=== PATIENT | female | born 1940 | race Caucasian/White ===

== ENCOUNTER 2020-07-10 10:00 | Outpatient (NON) | payer OTHER, SELFPAY ==
[2020-07-10 11:07] LABS: Alanine Aminotransferase 20 U/L (4-35); Albumin Level 3.9 g/dL (3.5-5.1); Alkaline Phosphatase 52 U/L (38-126); Anion Gap 8 mmol/L (8-16); Aspartate Amino Transferase 33 U/L (14-36); Bilirubin,Total 0.4 mg/dL (0.2-1.3); Blood Urea Nitrogen 25 mg/dL (7-17); Calcium 9.3 mg/dL (8.4-10.2); Carbon Dioxide 29 mmol/L (22-30); Chloride 106 mmol/L (98-107); Cholesterol 164 mg/dL (0-200); Estimated Glomerular Filt Rate > 60; Glucose 92 mg/dL (65-105); HDL Direct 45 mg/dL; LDL Cholesterol Direct 87 mg/dL; Potassium 4.2 mmol/L (3.4-5.0); Sodium 143 mmol/L (137-145); Thyroid Stimulating Hormone 0.027 uIU/mL (0.465-4.680); Triglycerides 147 mg/dL (<150)
== END 2020-07-10 10:01 ==
PROVIDERS: PCP Emergency Medicine; Visit Provider Emergency Medicine
DX: M16.0 Bilateral primary osteoarthritis of hip (principal); M17.11 Unilateral primary osteoarthritis, right knee; G30.1 Alzheimer's disease with late onset; F02.80 Dementia in other diseases classified elsewhere, unspecified severity, without behavioral disturbance, psychotic disturbance, mood disturbance, and anxiety; E78.5 Hyperlipidemia, unspecified; E03.9 Hypothyroidism, unspecified
CPT/HCPCS: 80053; 80061; 84443

== ENCOUNTER → 2021-04-22 15:01 | Outpatient (CLI) | payer OTHER, SELFPAY ==
--- NOTE | ~2021-04-22 | XR_ITS ---
EXAMINATION: XR knee LT 2V DATE: 04/22/2021 15:22 INDICATION: Left knee pain. TECHNIQUE: 2 views of left knee standing were obtained. COMPARISON: Left knee radiographs 09/01/2018 FINDINGS: There is a total left knee arthroplasty without patellar resurfacing in near-anatomic align ment. No fracture. No periprosthetic lucency to suggest loosening or infection. There is moderate ost eoarthritis of patellofemoral compartment. There is a moderate-sized knee joint effusion. IMPRESSION: 1. Total left knee arthroplasty in near-anatomic alignment. 2. Moderate osteoarthritis of patellofemoral compartment. 3. Moderate-sized knee joint effusion. Reviewed, dictated and finalized at location A.
== END ==
PROVIDERS: PCP Emergency Medicine; Visit Provider Nurse Practitioner Family
DX: M25.462 Effusion, left knee (principal); M17.12 Unilateral primary osteoarthritis, left knee
CPT/HCPCS: 73560

== ENCOUNTER 2022-03-24 11:59 | Observation (INO) | payer OTHER, SELFPAY ==
[2022-03-24] VITALS (7 sets, daily range): BP systolic 96–126; BP diastolic 44–81; PULSE 48–57; RESP 13–20; TEMP 36.6–36.8; O2SAT 94–99; BMI 37.3
--- NOTE | ~2022-03-24 | XR_ITS ---
XR knee LT 2V 03/25/2022 15:20 Indication: Left knee pain and swelling Procedure: 2 views left knee Comparison: 04/22/2021 Findings: There is a left total knee arthroplasty. Prosthesis well seated. Osteopenia. No acute fract ure or traumatic malalignment. No significant joint effusion. Impression: 1: No acute fracture. 2: Osteopenia. Reviewed, dictated and finalized at location A. Impression: 1: No acute fracture. 2: Osteopenia.
--- NOTE | ~2022-03-24 | XR_ITS ---
EXAMINATION: XR foot LT 2V DATE: 03/24/2022 12:52 INDICATION: Left heel pain. TECHNIQUE: 2 views of left foot were obtained. COMPARISON: None. FINDINGS: There is severe hallux valgus. There is diffuse osteopenia. No fracture. There is heterotop ic ossification distal to lateral malleolus, likely from old injury. There is moderate osteoarthritis of first metatarsophalangeal joint. There is an enthesophyte at plantar aspect of calcaneal tuberosi ty. IMPRESSION: 1. Severe hallux valgus. 2. Moderate osteoarthritis of first metatarsophalangeal joint. Reviewed, dictated and finalized at location A.
--- NOTE | ~2022-03-24 | US_ITS ---
EXAMINATION:US venous doppler LE BI INDICATION:Bilateral leg swelling TECHNIQUE: Multiple grayscale, color flow and Doppler images of the right and left lower extremity de ep venous systems were obtained and reviewed. COMPARISON:Ultrasound dated 03/01/2019 FINDINGS: There is deep venous thrombosis of the right popliteal and posterior tibial veins. The autumn yloanda of the right lower extremity and visualized aspects of the left lower extremity veins are paten t with normal flow, compressibility and augmentation. The left calf veins are not well visualized due to leg edema. IMPRESSION: 1: Deep venous thrombosis of the right popliteal and posterior tibial veins. Dr. Deric Howell discussed with Dr. Gala Bravo MD at 03/24/2022 14:24 CDT. Reviewed, dictated and finalized at location A.
--- NOTE | ~2022-03-24 | XR_ITS ---
EXAMINATION: XR chest 1V portable DATE: 03/24/2022 12:52 INDICATION: Lower limb edema. TECHNIQUE: A single frontal view of the chest was obtained. COMPARISON: Chest 2 views 01/18/2019 FINDINGS: The patient is rotated to her left. There is a diffuse interstitial pattern, consistent wit h mild pulmonary edema. No pleural effusion or pneumothorax. Cardiomegaly is noted. IMPRESSION: 1. Mild pulmonary edema. 2. Cardiomegaly. Reviewed, dictated and finalized at location A.
--- NOTE | 2022-03-24 12:24 | ECG_ITS ---
Measurements Intervals Snyder Rate: 51 P: 91 RI: 166 QRS: -65 QRSD: 154 T: 28 QT: 467 QTc: 432 Interpretive Statements SINUS BRADYCARDIA RIGHT BUNDLE BRANCH BLOCK LEFT ANTERIOR FASCICULAR BLOCK BASELINE ARTIFACT- I, II, III, AVR, AVL, AVF ABNORMAL ECG Electronically Signed On 03-24-2022 12:59:54 CDT by Hank Haynes D.O.
--- NOTE | 2022-03-24 12:39 | ED.GENADULT ---
HPI - General Adult General Chief complaint: Weakness Stated complaint: bilateral leg edema and pain, unable to walk now Time Seen by Provider: 03/24/22 12:02 Source: patient and RN notes reviewed Mode of arrival: EMS Limitations: no limitations History of Present Illness HPI narrative: This is an 81 year old female who presents from home for evaluation of left heel pain. PAtient states she has had difficulty getting around her house for months. She has been able to ambulate with a walker until today. She states she was unable to walk today because she is noticing left heel pain when she moves her foot and stands on her left heel. She denies any trauma. She has history of bilateral leg edema and that is chronic. She denies chest pain, sob, nausea, vomiting, dizziness. She states she can not walk due to her left heel pain. Related Data Home Medications Medication Instructions Recorded Confirmed acetaminophen 325 mg tablet See Rx Instructions .Route 08/24/19 03/24/22 .COMPLEX PRN pain Allergies Allergy/AdvReac Type Severity Reaction Status Date / Time No Known Allergies Allergy Verified 12/30/21 14:11 Review of Systems Review of Systems: All systems reviewed & are unremarkable except as noted in HPI and below Constitutional: Constitutional: Reports weakness Cardiovascular: Cardiovascular: Denies syncope, Denies rapid heart rate, Denies irregular heart rhythm, Reports leg edema and Denies dyspnea Respiratory: Respiratory: Denies chest congestion, Denies hemoptysis, Denies excessive phlegm production and Denies dyspnea Gastrointestinal: Gastrointestinal: Denies abdominal pain, Denies hematochezia, Denies diarrhea and Denies vomiting Genitourinary: Genitourinary: Denies hematuria and Denies dysuria Musculoskeletal: Musculoskeletal: Denies joint swelling, Denies loss of height and Denies muscle weakness Comments: left heel pain Integumentary/Breasts: Skin/Breast: Reports rash Neurologic: Denies syncope, Reports focal weakness (left arm weakness from previous stroke) and Denies weakness [facility] Past Medical History Medical History CVA (cerebral vascular accident) Dementia Depression HLD (hyperlipidemia) HTN (hypertension) Hypothyroidism (acquired) Surgical History Surgical History H/O left knee surgery History of back surgery Family History Family History Father Family history of cardiovascular disease, Onset Age: 56 Family history of malignant neoplasm, Onset Age: 56 Mother Family history of cardiovascular disease, Onset Age: 91 Social History Social History (Updated 03/24/22 @ 17:36 by Marifer Dinh PA-C) Smoking status: Former smoker Smoking end date: 03/13/17 Alcohol intake: former Substance use: never Living arrangements: with family Additional living arrangements comments: lives at home Gender identity (if verbalized by the patient): Female Sexual Orientation (if Verbalized by the Patient): Straight or Heterosexual Spiritual care concerns: No Exam Const: General: alert Nutritional Appearance: obese Orientation/consciousness: patient oriented x3 HENMT: Head: normal to inspection Eyes: Pupils: Equal, round and reactive pupils present EOM: EOMs intact bilaterally Resp: Effort & Inspection: normal respiratory effort Auscultation: clear to auscultation bilaterally Cardio: Rate: regular rate Rhythm: regular rhythm Heart sounds: no murmurs GI: GI Palp: Yes Soft to palpation, No Tenderness to palpation present (GI), No Guarding due to palpation present (GI) and No Rigid due to palpation Skin: Other: bilateral groin with rash , candidal there appears to be superficial ulcerations to left heel Neuro: General: patient oriented x3, moves all extremities an
[2022-03-24 13:11] LABS: Basophils Absolute Auto 0.1 K/mm3 (0.0-0.1); Basophils Percent Auto 1.1 % (0.2-1.2); Eosinophils Percent Auto 0.2 % (0-4.4); Hematocrit 39.8 % (37.0-47.0); Hemoglobin 12.6 g/dL (12.0-15.0); Immature Granulocyte Absolute 0.03 K/mm3 (0.00-0.031); Immature Granulocyte Percent A 0.4 % (0-0.5); Lymphocytes Absolute Auto 1.55 K/mm3 (0.9-3.2); Lymphocytes Percent Auto 18.6 % (18.3-44.2); Mean Corpuscular HGB Conc 31.7 g/dl (32-36); Mean Corpuscular Hemoglobin 29.3 pg (26-34); Mean Corpuscular Volume 92.6 fl (80-100); Mean Platelet Volume 10.8 fl (7.4-10.4); Monocytes Absolute Auto 0.9 K/mm3 (0.1-0.6); Monocytes Percent Auto 10.6 % (2.6-8.5); Neutrophils Absolute Auto 5.8 K/mm3 (1.3-6.7); Neutrophils Percent Auto 69.1 % (45.5-73.1); Platelet Count Result 216 k/mm3 (150-375); Red Cell Distribution Width 15.9 % (11.5-14.5); White Blood Count 8.3 K/mm3 (4.5-10.0)
[2022-03-24 13:13] LABS: Add Urine Microscopic? YES; Appearance Urine Cloudy (Clear); Bilirubin Urine Negative (Negative); Blood Urine 2+ (Negative); Color Urine Yellow (Yellow); Glucose Urine UA Negative (Negative); Ketones Urine Negative (Negative); Leukocyte Esterase Ur 3+ LEU/UL (Negative); Nitrate Urine Negative (Negative); Protein Urine 2+ mg/dL (Negative); Urobilinogen Urine 0.2 mg/dL (<2.0)
[2022-03-24 13:20] LABS: Alanine Aminotransferase 13 U/L (6-35); Albumin Level 3.9 g/dL (3.5-5.1); Alkaline Phosphatase 81 U/L (38-126); Anion Gap 4 mmol/L (8-16); Aspartate Amino Transferase 27 U/L (14-36); Bilirubin,Total 0.4 mg/dL (0.2-1.3); Blood Urea Nitrogen 31 mg/dL (7-17); Carbon Dioxide 32 mmol/L (22-30); Chloride 101 mmol/L (98-107); Estimated CRCL calculation 35 ml/min; Estimated Glomerular Filt Rate 39; Glucose 113 mg/dL (65-110); Potassium 3.8 mmol/L (3.4-5.0); Sodium 137 mmol/L (137-145)
[2022-03-24 13:26] LABS: Bacteria Urine 2+ /hpf; INR 1.1; Mucus Urine Rare /lpf; Prothrombin Time 13.6 Seconds (11.1-14.7); RBC Urine 21-50 /hpf (0-2); Squamous Epithelial Cell Urine Rare /hpf (Few); WBC Clumps Urine Present /HPF; WBC Urine >75 /hpf
[2022-03-24 13:27] LABS: Partial Thromboplastin Time 38.5 SECONDS (22.3-36.8)
[2022-03-24 13:28] LABS: NT Pro B Type Natriuretic Pept 284 pg/mL (5-100)
[2022-03-24] MEDS: ENOXAPARIN 100 MG/ML SYRINGE SUB-Q (15:29)
[2022-03-24 16:16] LABS: SARS-CoV-2 RNA PCR Negative
--- NOTE | 2022-03-24 17:21 | PM.IMHP ---
H&P: HPI History of Present Illness Date/Time: 03/24/22 17:21 Chief Complaint: Heel pain/ immobility Narrative: Patient is an 81-year-old female with past medical history of multiple strokes, dementia, depression, hyperlipidemia, hypertension, hypothyroidism, multiple blood clots, chronic pain, who presents to the emergency room for 2-3 day history of severe lower extremity swelling and pain and immobility. The patient reports that the pain in her left heel was so painful that she could not walk. She denies any urinary symptoms. She denies chest pain, shortness a breath, fever, chills, worsening confusion. Daughter and reported power of prosecuting attorney was present in the room during my exam, and helped to provide a portion of this history. The patient did consent to discussing her health care with her daughter and sister in the room. Daughter that patient had not moved from her couch in approximately 2-3 days, at which point the daughter called an ambulance to have her brought in to the hospital. Her daughter states patient and patient s are poor historians. States that patient has a history of multiple DVTs, with the most recent being in 2017 after her most recent stroke. She states she was on anticoagulation for some time, but it was discontinued for unknown reasons. She states the patient is incontinent, which contributes to frequent UTIs. The daughter used to be able to tell whenmother had UTIs due to confusion, however her dementia has worsened to the point where she can no longer tell when she has a UTI. Patient has been receiving home health care regularly, however her condition has progressed to the point where she does not feel it is safe for her to be at home, and is requesting placement at [facility] for long-term care. Patient has a history of at least 2 strokes in the past, and her primary care tells her that she continues to have multiple mini strokes. Patient denies history of heart attack, but she does have high blood pressure. She has depression, for which she takes sertraline, and chronic pain from a back surgery in the for which she receives pain medication through pump. Surgical history includes her back surgery in the late s or early 1999s, a abdominal hernia surgery in 2016 or 2017, and a left knee surgery in 2018 or 2019. She does not drink alcohol, she is a former smoker having quit 5 years prior, and she denies any street drug or illicit drug use. ER workup was significant for venous duplex showing right popliteal who posterior tibialis vein thrombosis, chest x-ray showing mild pulmonary edema and cardiomegaly, BNP of 284, UA showing RBCs, leuk esterase, wbc's, bacteria, and protein. Patient was given therapeutic Lovenox for the DVT and started on ceftriaxone for presumed UTI. She was further given a dose of IV Lasix in the ER, and we will continue her home diuretics once her medications are confirmed. Will transition her to apixaban in the morning for long-term anticoagulation. She may benefit from Hematology consultation. Patient is reportedly not ambulatory or stable on her feet and is prone to falls over short distances. Wound care will consult for her heel and buttock ulcers, and PT/OT will evaluate for placement in [facility]. Review of Systems Review of Systems: All systems reviewed & are unremarkable except as noted in HPI and below PMFSH Past Medical History Medical History CVA (cerebral vascular accident) Dementia Depression HLD (hyperlipidemia) HTN (hypertension) Hypothyroidism (acquired) Surgical History Surgical History H/O left knee surgery History of back surgery Family History Family History Father Family history of cardiovascular disease, Onset Age: 56 Family history of malignant neoplasm, Onset Age:
[2022-03-24] MEDS: FUROSEMIDE INJ 40 MG/4 ML VIAL IV PUSH (18:14)
[2022-03-24] MEDS: TOLNAFTATE 1% POWDER 45 GM BTL 1 APPLIC TOPICAL (20:33)
--- NOTE | 2022-03-24 22:17 | ADMGEN ---
This patient, Samantha Burgess, was admitted to Medical Room 343-01. Patient/family oriented to hospital policies and general routines including ID bracelet, bed and alarms, visiting hours, pain management, procedures, bathroom and other care routines, personal items, smoking policy, room service/diet, and visiting hours. Information on how to activate the Rapid Response Team has been discussed. Patient/Family are encouraged to report perceived risks to care and to ask questions if they do not understand what they are told or what they should do.
[2022-03-25] VITALS (9 sets, daily range): BP systolic 104–109; BP diastolic 32–61; PULSE 47–89; RESP 16–20; TEMP 36.2–36.6; O2SAT 95
[2022-03-25 00:06] LABS: Alanine Aminotransferase 12 U/L (6-35); Albumin Level 3.3 g/dL (3.5-5.1); Alkaline Phosphatase 72 U/L (38-126); Anion Gap 2 mmol/L (8-16); Aspartate Amino Transferase 25 U/L (14-36); Bilirubin,Total 0.4 mg/dL (0.2-1.3); Blood Urea Nitrogen 30 mg/dL (7-17); Calcium 8.6 mg/dL (8.4-10.2); Carbon Dioxide 31 mmol/L (22-30); Chloride 102 mmol/L (98-107); Estimated CRCL calculation 39 ml/min; Estimated Glomerular Filt Rate 43; Glucose 102 mg/dL (65-110); Potassium 4.4 mmol/L (3.4-5.0); Sodium 135 mmol/L (137-145)
[2022-03-25 00:10] LABS: Magnesium 2.2 mg/dL (1.6-2.3); Phosphorus 3.6 mg/dL (2.5-4.5)
[2022-03-25 04:50] LABS: Thyroid Stimulating Hormone Reflex > 100.000 uIU/mL (0.465-4.68)
[2022-03-25] MEDS: APIXABAN 2.5 MG TABLET PO ×2 (05:09→17:14)
[2022-03-25 05:17] LABS: Free T4 Free Thyroxine Reflex 0.55 ng/dL (0.78-2.19)
[2022-03-25 05:46] LABS: Basophils Absolute Auto 0.1 K/mm3 (0.0-0.1); Eosinophils Absolute Auto 0.1 K/mm3 (0-0.3); Eosinophils Percent Auto 0.9 % (0-4.4); Hematocrit 39.2 % (37.0-47.0); Hemoglobin 12.2 g/dL (12.0-15.0); Immature Granulocyte Absolute 0.02 K/mm3 (0.00-0.031); Immature Granulocyte Percent A 0.2 % (0-0.5); Lymphocytes Absolute Auto 1.92 K/mm3 (0.9-3.2); Lymphocytes Percent Auto 23.9 % (18.3-44.2); Mean Corpuscular HGB Conc 31.1 g/dl (32-36); Mean Corpuscular Volume 93.3 fl (80-100); Mean Platelet Volume 10.7 fl (7.4-10.4); Monocytes Absolute Auto 0.7 K/mm3 (0.1-0.6); Monocytes Percent Auto 8.7 % (2.6-8.5); Neutrophils Absolute Auto 5.2 K/mm3 (1.3-6.7); Neutrophils Percent Auto 65.3 % (45.5-73.1); Platelet Count Result 200 k/mm3 (150-375); Red Cell Distribution Width 15.8 % (11.5-14.5)
[2022-03-25 05:53] LABS: Alanine Aminotransferase 13 U/L (6-35); Albumin Level 3.5 g/dL (3.5-5.1); Alkaline Phosphatase 78 U/L (38-126); Anion Gap 4 mmol/L (8-16); Aspartate Amino Transferase 26 U/L (14-36); Bilirubin,Total 0.4 mg/dL (0.2-1.3); Blood Urea Nitrogen 28 mg/dL (7-17); Calcium 8.6 mg/dL (8.4-10.2); Carbon Dioxide 31 mmol/L (22-30); Chloride 103 mmol/L (98-107); Estimated CRCL calculation 39 ml/min; Estimated Glomerular Filt Rate 43; Glucose 91 mg/dL (65-110); Potassium 4.5 mmol/L (3.4-5.0); Sodium 138 mmol/L (137-145)
[2022-03-25] MEDS: TOLNAFTATE 1% POWDER 45 GM BTL 1 APPLIC TOPICAL ×2 (09:11→20:26)
--- NOTE | 2022-03-25 11:15 | P.PNIM_ITS ---
Progress Note: A&P Assessment and Plan (1) DVT (deep venous thrombosis): Code(s): I82.409 - Acute embolism and thrombosis of unspecified deep veins of unspecified lower extremity Status: Acute Assessment and Plan: * Venous duplex showed DVT of the right popliteal and PT veins. * Patient was started on Lovenox in the ER * Has been transitioned to Eliquis * Bleeding precaution education (2) Abnormal urinalysis: Code(s): R82.90 - Unspecified abnormal findings in urine Status: Acute Assessment and Plan: * UA shows likely UTI * Continue ceftriaxone * urine cultures pending * Since patient is incontinent it would cause the patient to be more prone to infection (3) Chronic pain: Code(s): G89.29 - Other chronic pain Status: Acute Assessment and Plan: * Reportedly has been treated for chronic pain since the late /early 1999s after back surgery. * On exam patient has a palpable subcutaneous pain pump in the right side of her abdomen. * We requested records from her primary care and pain management to determine what medication the pain pump is providing, and what rate. (4) Hypothyroidism (acquired): Code(s): E03.9 - Hypothyroidism, unspecified Status: Acute Assessment and Plan: * Awaiting confirmation patient's home medications * Current TSH is >100.000, and T4 is 0.55 * Currently on 100mcg of levothyroxine * Continue that for now * Will probably need to be titrated up for better control (5) Depression: Qualifiers: Active/Remission status: currently active Depression Type: major depressive disorder Major depression episode severity: mild Major depression recurrence: recurrent Qualified Code(s): F33.0 - Major depressive disorder, recurrent, mild Code(s): F32.9 - Major depressive disorder, single episode, unspecified Status: Acute Assessment and Plan: * Continue home medications (6) Dementia: Qualifiers: Alzheimer's disease onset: late-onset Dementia behavioral disturbance: without behavioral disturbance Dementia type: Alzheimer's disease Qualified Code(s): G30.1 - Alzheimer's disease with late onset; F02.80 - Dementia in other diseases classified elsewhere without behavioral disturbance Code(s): F03.90 - Unspecified dementia without behavioral disturbance Status: Acute Assessment and Plan: * Continue home medications * Patient's daughter reports that she is the medical power of mix technician for this patient, however there are no records in the chart shows this. Will need to obtain copy of this power of mix technician and or advance directive from the pat rose and her daughter. (7) Incontinence: Code(s): R32 - Unspecified urinary incontinence Status: Acute Assessment and Plan: * Plan as above * She might benefit from some bladder training (8) Left knee pain: Code(s): M25.562 - Pain in left knee Status: Acute Assessment and Plan: * Xray ordered * Could be from lack of use * Pain control Time Spent With Patient Time with patient: Greater than 35 minutes Subjective Date/time seen: 03/25/22 11:15 Interval history: 03/25/22 1115 Patient was sitting in the chair today. She was stating that she felt okay. She did say that her left knee was hurting her
--- NOTE | 2022-03-25 11:15 | PM.IMPN ---
Progress Note: A&P Assessment and Plan (1) DVT (deep venous thrombosis): Code(s): I82.409 - Acute embolism and thrombosis of unspecified deep veins of unspecified lower extremity Status: Acute Assessment and Plan: Venous duplex showed DVT of the right popliteal and PT veins. Patient was started on Lovenox in the ER Has been transitioned to Eliquis Bleeding precaution education (2) Abnormal urinalysis: Code(s): R82.90 - Unspecified abnormal findings in urine Status: Acute Assessment and Plan: UA shows likely UTI Continue ceftriaxone urine cultures pending Since patient is incontinent it would cause the patient to be more prone to infection (3) Chronic pain: Code(s): G89.29 - Other chronic pain Status: Acute Assessment and Plan: Reportedly has been treated for chronic pain since the late /early after back surgery. On exam patient has a palpable subcutaneous pain pump in the right side of her abdomen. We requested records from her primary care and pain management to determine what medication the pain pump is providing, and what rate. (4) Hypothyroidism (acquired): Code(s): E03.9 - Hypothyroidism, unspecified Status: Acute Assessment and Plan: Awaiting confirmation patient's home medications Current TSH is >100.000, and T4 is 0.55 Currently on 100mcg of levothyroxine Continue that for now Will probably need to be titrated up for better control (5) Depression: Qualifiers: Active/Remission status: currently active Depression Type: major depressive disorder Major depression episode severity: mild Major depression recurrence: recurrent Qualified Code(s): F33.0 - Major depressive disorder, recurrent, mild Code(s): F32.9 - Major depressive disorder, single episode, unspecified Status: Acute Assessment and Plan: Continue home medications (6) Dementia: Qualifiers: Alzheimer's disease onset: late-onset Dementia behavioral disturbance: without behavioral disturbance Dementia type: Alzheimer's disease Qualified Code(s): G30.1 - Alzheimer's disease with late onset; F02.80 - Dementia in other diseases classified elsewhere without behavioral disturbance Code(s): F03.90 - Unspecified dementia without behavioral disturbance Status: Acute Assessment and Plan: Continue home medications Patient's daughter reports that she is the medical power of estate attorney for this patient, however there are no records in the chart shows this. Will need to obtain copy of this power of estate attorney and or advance directive from the patient and her daughter. (7) Incontinence: Code(s): R32 - Unspecified urinary incontinence Status: Acute Assessment and Plan: Plan as above She might benefit from some bladder training (8) Left knee pain: Code(s): M25.562 - Pain in left knee Status: Acute Assessment and Plan: Xray ordered Could be from lack of use Pain control Time Spent With Patient Time with patient: Greater than 35 minutes Subjective Date/time seen: 03/25/22 11:15 Interval history: 03/25/22 1115 Patient was sitting in the chair today. She was stating that she felt okay. She did say that her left knee was hurting her and which was causing her not to be able to get up as well. She denies any chest pain, shortness of breath, nausea, vomiting, diarrhea, constipation, weakness or fatigue. She did state that she is urinating okay. Her appetite seems okay at this time as well. Patient did state that it was really hard getting out of bed however she did to it. They had to use the [facility]. 03/24/22? 17:21 Patient is an 81-year-old female with past medical history of multiple strokes, dementia, depression, hyperlipidemia, hypertension, hypothyroidism, multiple blo
[2022-03-25 15:59] LABS: Hematocrit 36.8 % (37.0-47.0); Hemoglobin 11.6 g/dL (12.0-15.0)
[2022-03-26] VITALS (8 sets, daily range): BP systolic 130–139; BP diastolic 42–46; PULSE 47–85; RESP 16–20; TEMP 36.4–36.6; O2SAT 96–99
[2022-03-26] MEDS: APIXABAN 2.5 MG TABLET PO (05:25)
[2022-03-26 05:53] LABS: Basophils Absolute Auto 0.1 K/mm3 (0.0-0.1); Eosinophils Absolute Auto 0.2 K/mm3 (0-0.3); Hematocrit 39.5 % (37.0-47.0); Immature Granulocyte Absolute 0.03 K/mm3 (0.00-0.031); Immature Granulocyte Percent A 0.5 % (0-0.5); Lymphocytes Absolute Auto 1.99 K/mm3 (0.9-3.2); Lymphocytes Percent Auto 33.1 % (18.3-44.2); Mean Corpuscular HGB Conc 30.4 g/dl (32-36); Mean Corpuscular Hemoglobin 29.2 pg (26-34); Mean Corpuscular Volume 96.1 fl (80-100); Mean Platelet Volume 11.2 fl (7.4-10.4); Monocytes Absolute Auto 0.6 K/mm3 (0.1-0.6); Monocytes Percent Auto 10.6 % (2.6-8.5); Neutrophils Absolute Auto 3.1 K/mm3 (1.3-6.7); Neutrophils Percent Auto 51.8 % (45.5-73.1); Platelet Count Result 152 k/mm3 (150-375); Red Blood Count 4.11 M/mm3 (4.2-5.4); Red Cell Distribution Width 15.9 % (11.5-14.5)
[2022-03-26 06:06] LABS: Alanine Aminotransferase 11 U/L (6-35); Albumin Level 3.1 g/dL (3.5-5.1); Alkaline Phosphatase 64 U/L (38-126); Anion Gap 6 mmol/L (8-16); Aspartate Amino Transferase 30 U/L (14-36); Bilirubin,Total 0.3 mg/dL (0.2-1.3); Blood Urea Nitrogen 29 mg/dL (7-17); Calcium 7.9 mg/dL (8.4-10.2); Carbon Dioxide 24 mmol/L (22-30); Chloride 103 mmol/L (98-107); Estimated CRCL calculation 43 ml/min; Estimated Glomerular Filt Rate 48; Glucose 78 mg/dL (65-110); Magnesium 2.4 mg/dL (1.6-2.3); Potassium 4.1 mmol/L (3.4-5.0); Sodium 133 mmol/L (137-145)
[2022-03-26] MEDS: TOLNAFTATE 1% POWDER 45 GM BTL 1 APPLIC TOPICAL (07:51)
--- NOTE | 2022-03-26 11:30 | PM.DS ---
DS: Admitting Diagnosis Discharge Date 03/26/22 11:30 Admitting Diagnosis DVT/UTI DS: Discharge Diagnosis Discharge Diagnosis (1) DVT (deep venous thrombosis): Code(s): I82.409 - Acute embolism and thrombosis of unspecified deep veins of unspecified lower extremity Status: Acute Assessment and Plan: Venous duplex showed DVT of the right popliteal and PT veins. Patient was started on Lovenox in the ER Has been transitioned to Eliquis Bleeding precaution education (2) Chronic pain: Code(s): G89.29 - Other chronic pain Status: Acute Assessment and Plan: Reportedly has been treated for chronic pain since the late /early after back surgery. On exam patient has a palpable subcutaneous pain pump in the right side of her abdomen. We requested records from her primary care and pain management to determine what medication the pain pump is providing, and what rate. (3) Hypothyroidism (acquired): Code(s): E03.9 - Hypothyroidism, unspecified Status: Acute Assessment and Plan: Awaiting confirmation patient's home medications Current TSH is >100.000, and T4 is 0.55 Currently on 100mcg of levothyroxine Continue that for now Will probably need to be titrated up for better control (4) Depression: Qualifiers: Active/Remission status: currently active Depression Type: major depressive disorder Major depression episode severity: mild Major depression recurrence: recurrent Qualified Code(s): F33.0 - Major depressive disorder, recurrent, mild Code(s): F32.9 - Major depressive disorder, single episode, unspecified Status: Acute Assessment and Plan: Continue home medications (5) Dementia: Qualifiers: Alzheimer's disease onset: late-onset Dementia behavioral disturbance: without behavioral disturbance Dementia type: Alzheimer's disease Qualified Code(s): G30.1 - Alzheimer's disease with late onset; F02.80 - Dementia in other diseases classified elsewhere without behavioral disturbance Code(s): F03.90 - Unspecified dementia without behavioral disturbance Status: Acute Assessment and Plan: Continue home medications Patient's daughter reports that she is the medical power of managing attorney for this patient, however there are no records in the chart shows this. Will need to obtain copy of this power of managing attorney and or advance directive from the patient and her daughter. (6) Incontinence: Code(s): R32 - Unspecified urinary incontinence Status: Acute Assessment and Plan: Plan as above She might benefit from some bladder training (7) Left knee pain: Code(s): M25.562 - Pain in left knee Status: Acute Assessment and Plan: Xray ordered Could be from lack of use Pain control (8) Acute UTI: Code(s): N39.0 - Urinary tract infection, site not specified Status: Acute Assessment and Plan: UA shows likely UTI Antibiotics changed to Augmentin urine culture E. Coli Since patient is incontinent it would cause the patient to be more prone to infection Educated about good delmy care. DS: Summary Hospital Course Hospital Course: Patient is an 81 year old female with a past medical history of CVA, Dementia, HLD, HTN, and hypothyroidism who presented to the ed with complaints of severe weakness, and immobility. According to her daughter, the patient has been very lethargic and not been moving around much lately. Upon arrival it was noted that she had a DVT in her posterior tibialis. Chest xray showed pulmonary edema. UA did appear to be infectious and urine culture did come back growing E. Coli. Patient was initially started on full dose lovenox, and transitioned to Eliquis. She stated that she feels ok today and that she feels back to her baseline. She did also state that s
--- NOTE | 2022-03-26 11:30 | P.DS_ITS ---
DS: Admitting Diagnosis Discharge Date 03/26/22 11:30 Admitting Diagnosis DVT/UTI DS: Discharge Diagnosis Discharge Diagnosis (1) DVT (deep venous thrombosis): Code(s): I82.409 - Acute embolism and thrombosis of unspecified deep veins of unspecified lower extremity Status: Acute Assessment and Plan: * Venous duplex showed DVT of the right popliteal and PT veins. * Patient was started on Lovenox in the ER * Has been transitioned to Eliquis * Bleeding precaution education (2) Chronic pain: Code(s): G89.29 - Other chronic pain Status: Acute Assessment and Plan: * Reportedly has been treated for chronic pain since the late /early 1999s after back surgery. * On exam patient has a palpable subcutaneous pain pump in the right side of her abdomen. * We requested records from her primary care and pain management to determine what medication the pain pump is providing, and what rate. (3) Hypothyroidism (acquired): Code(s): E03.9 - Hypothyroidism, unspecified Status: Acute Assessment and Plan: * Awaiting confirmation patient's home medications * Current TSH is >100.000, and T4 is 0.55 * Currently on 100mcg of levothyroxine * Continue that for now * Will probably need to be titrated up for better control (4) Depression: Qualifiers: Active/Remission status: currently active Depression Type: major depressive disorder Major depression episode severity: mild Major depression recurrence: recurrent Qualified Code(s): F33.0 - Major depressive disorder, recurrent, mild Code(s): F32.9 - Major depressive disorder, single episode, unspecified Status: Acute Assessment and Plan: * Continue home medications (5) Dementia: Qualifiers: Alzheimer's disease onset: late-onset Dementia behavioral disturbance: without behavioral disturbance Dementia type: Alzheimer's disease Qualified Code(s): G30.1 - Alzheimer's disease with late onset; F02.80 - Dementia in other diseases classified elsewhere without behavioral disturbance Code(s): F03.90 - Unspecified dementia without behavioral disturbance Status: Acute Assessment and Plan: * Continue home medications * Patient's daughter reports that she is the medical power of immigration attorney for this patient, however there are no records in the chart shows this. Will need to obtain copy of this power of immigration attorney and or advance directive from the patient and her daughter. (6) Incontinence: Code(s): R32 - Unspecified urinary incontinence Status: Acute Assessment and Plan: * Plan as above * She might benefit from some bladder training (7) Left knee pain: Code(s): M25.562 - Pain in left knee Status: Acute Assessment and Plan: * Xray ordered * Could be from lack of use * Pain control (8) Acute UTI: Code(s): N39.0 - Urinary tract infection, site not specified Status: Acute Assessment and Plan: * UA shows likely UTI * Antibiotics changed to Augmentin * urine culture E. Coli * Since patient is incontinent it would cause the patient to be more prone to infection * Educated about good delmy care. DS: Summary Hospital Course Hospital Course: Patient is an 81 year old female with a past medical history of CVA, Dementia, HLD, HTN, and hypothyroi
[2022-03-26] MEDS: AMOXICILLIN 500 MG CAPSULE PO ×2 (11:35→14:42)
--- NOTE | 2022-03-26 11:44 | PCPTNOTE ---
Attempted to see patient for PT, however patient was eating lunch at this time.
[2022-03-26] MEDS: HYDROcodone/acetaminophen (*CRX) 5-325 MG TABLET 1 TAB PO (14:42)
[2022-03-26 15:40] LABS: EDCOVIDSCREEN Negative (Negative)
--- NOTE | 2022-03-26 15:43 | PCCCNOTE ---
On 03/26/22, the student, Roberta Cruz, provided care and completed [facility] documentation on this patient. I have reviewed the student's documentation and agree with the findings.
== END 2022-03-26 18:20 ==
LOC: ANHED 14:31 → ANH3MED 18:44
PROVIDERS: Internal Medicine; Student in an Organized Health Care Education/Training Program; Admitting Provider Internal Medicine; Emergency Provider General Practice; PCP Emergency Medicine; Visit Provider Nurse Practitioner
DX: I82.441 Acute embolism and thrombosis of right tibial vein (principal); G89.29 Other chronic pain; E03.9 Hypothyroidism, unspecified; F32.9 Major depressive disorder, single episode, unspecified; R32 Unspecified urinary incontinence; M25.562 Pain in left knee; R82.90 Unspecified abnormal findings in urine; G30.1 Alzheimer's disease with late onset; L89.90 Pressure ulcer of unspecified site, unspecified stage; F02.80 Dementia in other diseases classified elsewhere, unspecified severity, without behavioral disturbance, psychotic disturbance, mood disturbance, and anxiety; N39.0 Urinary tract infection, site not specified; R53.1 Weakness; M79.672 Pain in left foot; J81.1 Chronic pulmonary edema; Z86.73 Personal history of transient ischemic attack (TIA), and cerebral infarction without residual deficits; E78.5 Hyperlipidemia, unspecified; Z87.891 Personal history of nicotine dependence; I11.9 Hypertensive heart disease without heart failure; J81.0 Acute pulmonary edema; M20.12 Hallux valgus (acquired), left foot; R00.1 Bradycardia, unspecified; I45.2 Bifascicular block; M85.862 Other specified disorders of bone density and structure, left lower leg; B96.20 Unspecified Escherichia coli [E. coli] as the cause of diseases classified elsewhere; Z20.822 Contact with and (suspected) exposure to COVID-19; Z79.01 Long term (current) use of anticoagulants; Z79.02 Long term (current) use of antithrombotics/antiplatelets; Z79.899 Other long term (current) drug therapy
CPT/HCPCS: 36415; 51701; 71045; 73560; 73620; 80053; 81001; 83735; 83880; 84100; 84439; 84443; 85014; 85018; 85025; 85610; 85730; 87077; 87086; 87088; 87186; 87426; 93005; 93970; 96372; 96374; 96375; 97161; 97166; 97535; 99285; A9270; C9803; G0378; J0696; J1650; J1940; U0003; U0005

== ENCOUNTER 2022-10-11 10:58 | Observation (INO) | payer OTHER, SELFPAY ==
--- NOTE | ~2022-10-11 | CT_ITS ---
EXAMINATION: CT abdomen pelvis wo con DATE: 10/11/2022 12:36 INDICATION: Nonhealing localized abdominal pain TECHNIQUE: Computed tomography (CT) of the abdomen and pelvis was performed without intravenous contr ast. The dose-length product was 545.74 mGy-cm. Automated exposure control and iterative reconstructi on technique were employed. COMPARISON: CT dated 12/29/2016. FINDINGS: Cardiomegaly. Dependent atelectasis. Gallbladder is distended with gallstones. Large stagho rn calculus in the right kidney. There are multiple left renal stones. There is a complex irregularly marginated hypodense mass of the left kidney at the upper pole measuring 7.7 x 5.8 x 7 cm, new since prior examination, concerning for renal cell carcinoma. There is a ventral hernia containing fat kristine r the level of the umbilicus. No evidence for bowel obstruction. There is a pessary device in the pel vis. Severe lumbar spondylosis. 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 There is a spinal cath eter with the superior tip overlying the lower thoracic spine. IMPRESSION: 1. New complex irregular shaped mass of the upper pole of the left kidney, concerning for renal cell carcinoma. Correlation with CT or MRI without and with contrast recommended. 2: Dilated gallbladder with gallstones. 3: Bilateral nephrolithiasis with staghorn calculus in the right kidney. 4: Periumbilical ventral abdominal wall hernia containing fat and nonobstructed small bowel. Reviewed, dictated and finalized at location A. [facility] [employer] IMPRESSION: 1. New complex irregular shaped mass of the upper pole of the left kidney, conc erning for renal cell carcinoma. Correlation with CT or MRI without and with co ntrast recommended. 2: Dilated gallbladder with gallstones. 3: Bilateral nephrolithiasis with staghorn calculus in the right kidney. 4: Periumbilical ventral abdominal wall hernia containing fat and nonobstructe d small bowel.
[2022-10-11 10:58] VITALS: BP 101/73; PULSE 77; RESP 22; O2SAT 95
[2022-10-11] MEDS: SODIUM CHLORIDE 0.9% IV 1,000 ML 999 ML IV CONT ×2 (11:33→13:03)
[2022-10-11 11:56] LABS: Basophils Absolute Auto 0.1 K/mm3 (0.0-0.1); Basophils Percent Auto 0.4 % (0.2-1.2); Hematocrit 33.3 % (37.0-47.0); Hemoglobin 10.5 g/dL (12.0-15.0); Immature Granulocyte Absolute 0.38 K/mm3 (0.00-0.031); Immature Granulocyte Percent A 1.4 % (0-0.5); Lymphocytes Absolute Auto 1.68 K/mm3 (0.9-3.2); Lymphocytes Percent Auto 6.3 % (18.3-44.2); Mean Corpuscular HGB Conc 31.5 g/dl (32-36); Mean Corpuscular Hemoglobin 26.6 pg (26-34); Mean Corpuscular Volume 84.5 fl (80-100); Mean Platelet Volume 10.2 fl (7.4-10.4); Monocytes Absolute Auto 1.8 K/mm3 (0.1-0.6); Monocytes Percent Auto 6.9 % (2.6-8.5); Neutrophils Absolute Auto 22.6 K/mm3 (1.3-6.7); Platelet Count Result 405 k/mm3 (150-375); Red Blood Count 3.94 M/mm3 (4.2-5.4); Red Cell Distribution Width 18.8 % (11.5-14.5); White Blood Count 26.6 K/mm3 (4.5-10.0)
[2022-10-11 12:07] LABS: Lactic Acid Reflex 2.1 mmol/L (0.7-2.0)
[2022-10-11 12:12] LABS: RBC Urine >75 /hpf (0-2); WBC Clumps Urine Present /HPF; WBC Urine >75 /hpf
[2022-10-11 12:13] LABS: Alanine Aminotransferase 23 U/L (6-35); Albumin Level 3.4 g/dL (3.5-5.1); Alkaline Phosphatase 119 U/L (38-126); Anion Gap 15 mmol/L (8-16); Aspartate Amino Transferase 43 U/L (14-36); Bilirubin,Total 0.7 mg/dL (0.2-1.3); Calcium 8.8 mg/dL (8.4-10.2); Carbon Dioxide 18 mmol/L (22-30); Chloride 99 mmol/L (98-107); Estimated CRCL calculation 8 ml/min; Estimated Glomerular Filt Rate 8; Glucose 111 mg/dL (65-110); Lipase 222 U/L (23-300); Potassium 3.4 mmol/L (3.4-5.0); Sodium 132 mmol/L (137-145)
[2022-10-11 12:15] LABS: Add Urine Microscopic? YES; Appearance Urine Turbid (Clear); Color Urine Other (Yellow)
[2022-10-11 12:16] LABS: INR 2.1; Prothrombin Time 22.4 Seconds (11.1-14.7)
[2022-10-11 12:17] LABS: Partial Thromboplastin Time 43.6 SECONDS (22.3-36.8)
[2022-10-11 12:54] VITALS: BP 81/46; PULSE 83; RESP 15; O2SAT 92
[2022-10-11 12:54] LABS: Blood Urea Nitrogen 135 mg/dL (7-17)
[2022-10-11 13:07] VITALS: BP 98/71; PULSE 79; RESP 11; O2SAT 97
[2022-10-11 13:47] VITALS: BP 103/90; PULSE 84; RESP 15; O2SAT 97
--- NOTE | 2022-10-11 14:03 | ED.GENADULT ---
HPI - General Adult General Chief complaint: Abdominal Pain Stated complaint: ABD Pain, Abnormal Labs Time Seen by Provider: 10/11/22 11:06 History of Present Illness HPI narrative: Patient is an 82-year-old female who presents to the ER with abdominal pain and elevated BUN. Patient is oriented x1 cannot provide history. She has no complaints. She does have lower abdominal tenderness and there is concern by the [place] [facility] to have a bleeding from her vagina or rectum. Related Data Home Medications Medication Instructions Recorded Confirmed acetaminophen 325 mg tablet See Rx Instructions .Route 08/24/19 03/24/22 .COMPLEX PRN pain Allergies Allergy/AdvReac Type Severity Reaction Status Date / Time No Known Allergies Allergy Verified 12/30/21 14:11 Review of Systems Review of Systems: ROS unobtainable: Yes unobtainable due to mental status PMFSH Past Medical History Medical History CVA (cerebral vascular accident) Dementia Depression HLD (hyperlipidemia) HTN (hypertension) Hypothyroidism (acquired) Surgical History Surgical History H/O left knee surgery History of back surgery Family History Family History Father Family history of cardiovascular disease, Onset Age: 56 Family history of malignant neoplasm, Onset Age: 56 Mother Family history of cardiovascular disease, Onset Age: 91 Social History Social History (Updated 03/24/22 @ 17:36 by Marifer Dinh, NIMA) Smoking status: Former smoker Tobacco type: cigarettes Smoking end date: 03/13/17 Alcohol intake: never Substance use: never Substance use type: does not use Living arrangements: with family Additional living arrangements comments: lives at home Gender identity (if verbalized by the patient): Female Sexual Orientation (if Verbalized by the Patient): Straight or Heterosexual Spiritual care concerns: Yes (Quaker) Exam Narrative: GENERAL: Well-appearing, well-nourished, and in no acute distress. HEAD: Normocephalic, atraumatic. EYES: PERRL and EOMI. ENT: Mucous membranes moist. CHEST: Clear to auscultation. No respiratory distress. HEART: Tachycardic and regular. Normal peripheral pulses. ABDOMEN: Soft, tender palpation bilateral lower quadrants, nondistended. No black soft stool in rectum that is guaiac positive. EXTREMITIES: Normal range of motion. No edema. SKIN: Warm, dry, no rash. Sacral decubitus ulcer with fetid odor and grayish discharge. No surrounding cellulitis. NEURO: Alert and oriented x1. Course Course Emergency Course: I had a long conversation is patient's part appeals rn who is also her daughter. We have discussed central line and IV vasopressors and the seriousness of the patient's illness. They do not want any heroic or aggressive measures. The preferred patient be treated with IV fluids and IV antibiotics. They recognized that she may potentially related to her current illness. Vital Signs Vital signs: Vital Signs Pulse Rate 77 10/11/22 10:58 Respiratory Rate 22 H 10/11/22 10:58 Blood Pressure 101/73 10/11/22 10:58 Pulse Oximetry 95 10/11/22 10:58 Oxygen Delivery Room Air 10/11/22 10:58 Pulse Rate 84 10/11/22 13:47 Respiratory Rate 15 10/11/22 13:47 Blood Pressure 103/90 10/11/22 13:47 Pulse Oximetry 97 10/11/22 13:47 Oxygen Delivery Room Air 10/11/22 10:58 Medical Decision Making Vital Signs Vital Signs: Vital Signs Pulse Rate 77 10/11/22 10:58 Respiratory Rate 22 H 10/11/22 10:58 Blood Pressure 101/73 10/11/22 10:58 Pulse Oximetry 95 10/11/22 10:58 Oxygen Delivery Room Air 10/11/22 10:58 Pulse Rate 84 10/11/22 13:47 Respiratory Rate 15 10/11/22 13:47 Blood Pressure 103/90 10/11/22 13:47 Pulse Oximetry
--- NOTE | 2022-10-11 14:08 | PM.IMHP ---
H&P: HPI History of Present Illness Date/Time: 10/11/22 14:10 Chief Complaint: Abnormal labs. Narrative: This is an 82-year-old female with history of strokes, dementia, depression, hyperlipidemia, hypertension, hypothyroidism, multiple blood clots, chronic pain, who presented to the emergency department via EMS from [facility] for evaluation of abnormal labs. She is not able to provide an accurate history and thus all of the following history is obtained from her daughter and LEONARDO Rodríguezfer via phone. The patient has been in the residential since March 2022 and she is bed/wheelchair-bound, transferring with a left. According to Jeanette the patient has gone downhill in the last 2 months. It has gotten to the point where the patient does not want to eat, not due to nausea or vomiting, simply due to a lack of appetite. Jeanette also feels dementia may be playing a role in that as well. She has had issues with recurrent urinary tract infections and more recently she has developed 2 pressure ulcers. Over the past week she has apparently been much worse which prompted labs to be drawn which showed evidence of an acute kidney injury and she was sent in today for evaluation. Blood pressure was 81/46 on arrival to the emergency department and it has responded somewhat to IV fluids. Labs were significant for a WBC of 26.6, BUN 135, creatinine 5.10, sodium 132, lactic acid 2.1. According to the nurse her urine was purulent on insertion of Tapia catheter which yielded perhaps 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 Physical exam revealed malodorous discharge from a sacral decubitus ulcer, stool was dark and guaiac positive. All of this was discussed with the patient's daughter who reiterates that she is a do not resuscitate. Due to the patient's decline recently she does not want aggressive treatment but is okay with IV fluids and antibiotics. Hospice referral has been made for tomorrow. At the time my evaluation the patient is alert and is quite pleasant. She is confused but is aware that she is in the hospital. Her only complaint is that of pain in her tailbone. Review of Systems Review of Systems: Twelve systems were reviewed but given her dementia she is on accurate historian. She had no complaints aside from that as listed above. [facility] Past Medical History Medical History (Updated 10/11/22 @ 22:52 by Harper Og PA-C) Cerebrovascular accident Deep venous thrombosis Dementia Depression Hyperlipidemia Hypertension Hypothyroidism Surgical History Surgical History (Updated 10/11/22 @ 22:46 by Harper Og PA-C) History of back surgery History of cataract extraction History of left knee surgery Family History Family History Father Family history of cardiovascular disease, Onset Age: 56 Family history of malignant neoplasm, Onset Age: 56 Mother Family history of cardiovascular disease, Onset Age: 91 Social History Social History (Updated 10/11/22 @ 22:46 by Harper Og PA-C) Social History: Healthcare power of video game repair technician: Jeanette Burgess, daughter. Code status: Do not resuscitate per Smoking status: Former smoker Tobacco type: cigarettes Smoking end date: 03/13/17 Alcohol intake: never Substance use: never Substance use type: does not use Additional living arrangements comments: [facility]. Spiritual care concerns: Yes (Faith) Meds Home Medications and Allergies Home Medications Medication Instructions Recorded Confirmed Type acetaminophen 325 mg tablet See Rx Instructions .Route 08/24/19 10/11/22 History .COMPLEX PRN pain clopidogrel 75 mg tablet See Rx Inst
[2022-10-11 14:55] LABS: Reflex Lactic Acid Yes or No Add Lactic
[2022-10-11 15:36] LABS: Lactic Acid 1.1 mmol/L (0.7-2.0)
[2022-10-11 16:15] VITALS: BP 100/42; PULSE 80; RESP 13; O2SAT 93
[2022-10-11] MEDS: SODIUM CHLORIDE 0.9% IV 1,000 ML 125 ML IV CONT ×2 (17:07→21:15)
[2022-10-11] MEDS: PANTOPRAZOLE SODIUM IV 40 MG VIAL IV PUSH ×2 (17:07→21:07)
[2022-10-11 22:00] VITALS: BP 145/117; PULSE 155; RESP 16; TEMP 36.1
[2022-10-11 23:20] LABS: Hematocrit 30.6 % (37.0-47.0); Hemoglobin 9.5 g/dL (12.0-15.0); Mean Corpuscular Hemoglobin 26.2 pg (26-34); Mean Corpuscular Volume 84.3 fl (80-100); Mean Platelet Volume 10.3 fl (7.4-10.4); Platelet Count Result 350 k/mm3 (150-375); Red Blood Count 3.63 M/mm3 (4.2-5.4); Red Cell Distribution Width 18.6 % (11.5-14.5); White Blood Count 22.5 K/mm3 (4.5-10.0)
[2022-10-12 00:02] LABS: Anion Gap 14 mmol/L (8-16); Calcium 7.6 mg/dL (8.4-10.2); Carbon Dioxide 15 mmol/L (22-30); Chloride 109 mmol/L (98-107); Creatine Kinase 142 U/L (30-135); Estimated CRCL calculation 9 ml/min; Estimated Glomerular Filt Rate 10; Glucose 96 mg/dL (65-110); Magnesium 2.5 mg/dL (1.6-2.3); Potassium 3.4 mmol/L (3.4-5.0); Sodium 138 mmol/L (137-145)
[2022-10-12 00:11] LABS: Blood Urea Nitrogen 127 mg/dL (7-17)
[2022-10-12] MEDS: LACTATED RINGERS 1,000 ML 100 ML IV CONT ×2 (02:16→10:32)
[2022-10-12] MEDS: LEVOTHYROXINE SODIUM 100 MCG TABLET BY MOUTH (05:45)
[2022-10-12 06:00] VITALS: BP 131/86; PULSE 98; RESP 20; TEMP 36.4; O2SAT 100
[2022-10-12] MEDS: PANTOPRAZOLE SODIUM IV 40 MG VIAL IV PUSH (10:31)
[2022-10-12] MEDS: LIDOCAINE 5% PATCH 1 PATCH TRANSDERM (10:31)
[2022-10-12] MEDS: SERTRALINE HCL 50 MG TABLET 100 MG BY MOUTH (10:31)
[2022-10-12] MEDS: TOLNAFTATE 1% POWDER 45 GM BTL 1 APPLIC TOPICAL (10:32)
[2022-10-12] MEDS: ONDANSETRON INJ 4 MG/2 ML VIAL IV PUSH (11:30)
[2022-10-12] MEDS: MORPHINE SULFATE (*CRX) 4 MG/ML INJ IV PUSH ×2 (11:30→15:34)
--- NOTE | 2022-10-12 12:01 | PC.NURSE ---
Provider notified of blood culture results.
--- NOTE | 2022-10-12 12:32 | PM.IMPN ---
Progress Note: A&P Assessment and Plan (1) Sepsis: Code(s): A41.9 - Sepsis, unspecified organism Status: Acute (2) Acute kidney injury: Code(s): N17.9 - Acute kidney failure, unspecified Status: Acute (3) Urinary tract infection: Code(s): N39.0 - Urinary tract infection, site not specified Status: Acute (4) Heme positive stool: Code(s): R19.5 - Other fecal abnormalities Status: Acute (5) Left kidney mass: Code(s): N28.89 - Other specified disorders of kidney and ureter Status: Acute (6) Bilateral nephrolithiasis: Code(s): N20.0 - Calculus of kidney Status: Acute (7) Dementia: Qualifiers: Alzheimer's disease onset: late-onset Dementia behavioral disturbance: without behavioral disturbance Dementia type: Alzheimer's disease Qualified Code(s): G30.1 - Alzheimer's disease with late onset; F02.80 - Dementia in other diseases classified elsewhere without behavioral disturbance Code(s): F03.90 - Unspecified dementia, unspecified severity, without behavioral disturbance, psychotic disturbance, mood disturbance, and anxiety Status: Acute (8) Decubitus ulcer of sacral area: Code(s): L89.159 - Pressure ulcer of sacral region, unspecified stage Status: Acute Plan The patient presented to the ED from [facility] for evaluation of abnormal labs. Daughter provides the history given the patient's dementia. Labs, imaging, EKG, and reports were personally reviewed. The patient has sepsis as evidenced by hypotension (improved somewhat with fluids), lactic acidosis, and acute kidney injury. Source of infection appears to be urine and possibly decubitus ulcer. She has been started on Zosyn pending blood, wound, and urine cultures. At the time of this dictation she has received 3 L of IV fluid with minimal urine output. CT also showed evidence of a left renal mass which is presumably malignant and bilateral nephrolithiasis with a staghorn on the right. Additionally her stool was dark and Hemoccult positive. I had a lengthy conversation with the patient's daughter Jeanette via phone and given the above in addition to the patient's recent decline she has opted not to pursue aggressive treatment. We will continue with IV fluids and antibiotics for now. Hospice referral has been placed. Her home medications will be reviewed and resumed as appropriate. 10/12/2022 interval history: Patient with chronic multiple medical problems, patient health is worsening, her grand daughter is present in the room and has decided to place under hospice care, will consult ambulatory care for hospice consult. will continue to monitor. Subjective Date/time seen: 10/12/22 12:32 HPI-Narrative: This is an 82-year-old female with history of strokes, dementia, depression, hyperlipidemia, hypertension, hypothyroidism, multiple blood clots, chronic pain, who presented to the emergency department via EMS from [facility] for evaluation of abnormal labs. She is not able to provide an accurate history and thus all of the following history is obtained from her daughter and LEONARDO Reid via phone. The patient has been in the intermediate since March 2022 and she is bed/wheelchair-bound, transferring with a left. According to Jeanette the patient has gone downhill in the last 2 months. It has gotten to the point where the patient does not want to eat, not due to nausea or vomiting, simply due to a lack of appetite. Jeanette also feels dementia may be playing a role in that as well. She has had issues with recurrent urinary tract infections and more recently she has developed 2 pressure ulcers.? Over the past week she has apparently been much worse which prompted labs to be drawn which showed evidence of an acute kidney injury and she was sent in today for evaluation. Blood pressure was 81/46 on arrival to the emergency department and it has responded somewhat to IV
[2022-10-12 14:00] VITALS: BP 88/25; PULSE 92; RESP 12; TEMP 35.7; O2SAT 83
--- NOTE | 2022-10-12 14:52 | PM.DS ---
DS: Admitting Diagnosis Discharge Date 10/12/2022 Admitting Diagnosis Abnormal labs. DS: Discharge Diagnosis Discharge Diagnosis (1) Sepsis: Code(s): A41.9 - Sepsis, unspecified organism Status: Acute (2) Acute kidney injury: Code(s): N17.9 - Acute kidney failure, unspecified Status: Acute (3) Urinary tract infection: Code(s): N39.0 - Urinary tract infection, site not specified Status: Acute (4) Heme positive stool: Code(s): R19.5 - Other fecal abnormalities Status: Acute (5) Left kidney mass: Code(s): N28.89 - Other specified disorders of kidney and ureter Status: Acute (6) Bilateral nephrolithiasis: Code(s): N20.0 - Calculus of kidney Status: Acute (7) Dementia: Qualifiers: Dementia type: Alzheimer's disease Alzheimer's disease onset: late-onset Dementia behavioral disturbance: without behavioral disturbance Qualified Code(s): G30.1 - Alzheimer's disease with late onset; F02.80 - Dementia in other diseases classified elsewhere without behavioral disturbance Code(s): F03.90 - Unspecified dementia, unspecified severity, without behavioral disturbance, psychotic disturbance, mood disturbance, and anxiety Status: Acute (8) Decubitus ulcer of sacral area: Code(s): L89.159 - Pressure ulcer of sacral region, unspecified stage Status: Acute Plan The patient presented to the ED from [facility] for evaluation of abnormal labs. Daughter provides the history given the patient's dementia. Labs, imaging, EKG, and reports were personally reviewed. The patient has sepsis as evidenced by hypotension (improved somewhat with fluids), lactic acidosis, and acute kidney injury. Source of infection appears to be urine and possibly decubitus ulcer. She has been started on Zosyn pending blood, wound, and urine cultures. At the time of this dictation she has received 3 L of IV fluid with minimal urine output. CT also showed evidence of a left renal mass which is presumably malignant and bilateral nephrolithiasis with a staghorn on the right. Additionally her stool was dark and Hemoccult positive. I had a lengthy conversation with the patient's daughter Jeanette via phone and given the above in addition to the patient's recent decline she has opted not to pursue aggressive treatment. We will continue with IV fluids and antibiotics for now. Hospice referral has been placed. Her home medications will be reviewed and resumed as appropriate. 10/12/2022 interval history: Patient with chronic multiple medical problems, patient health is worsening, her grand daughter is present in the room and has decided to place under hospice care, will consult clinical care leader for hospice consult. will continue to monitor. DS: Summary Hospital Course Reason for hospitalization: Abnormal labs. Narrative: This is an 82-year-old female with history of strokes, dementia, depression, hyperlipidemia, hypertension, hypothyroidism, multiple blood clots, chronic pain, who presented to the emergency department via EMS from [facility] for evaluation of abnormal labs. She is not able to provide an accurate history and thus all of the following history is obtained from her daughter and LEONARDO Reid via phone. The patient has been in the detention since March 2022 and she is bed/wheelchair-bound, transferring with a left. According to Jeanette the patient has gone downhill in the last 2 months. It has gotten to the point where the patient does not want to eat, not due to nausea or vomiting, simply due to a lack of appetite. Jeanette also feels dementia may be playing a role in that as well. She has had issues with recurrent urinary tract infections and more recently she has developed 2 pressure ulcers.? Over the past week she has apparently been much worse which prompted labs to be drawn which showed evidence of an acute kidney injury and she was sent
[2022-10-12 16:45] VITALS: BP 90/52; O2SAT 98
[2022-10-12 20:00] VITALS: PULSE 92; RESP 12; O2SAT 98
== END 2022-10-12 20:40 | disposition hospice, inpatient (51) ==
LOC: ANHED 11:48 → ANH3MEDSUR 16:12
PROVIDERS: Physician Assistant; Admitting Provider Student in an Organized Health Care Education/Training Program; Emergency Provider Emergency Medicine; PCP Emergency Medicine; Visit Provider Family Medicine
DX: A41.9 Sepsis, unspecified organism (principal); N17.9 Acute kidney failure, unspecified; N39.0 Urinary tract infection, site not specified; R19.5 Other fecal abnormalities; N28.89 Other specified disorders of kidney and ureter; N20.0 Calculus of kidney; E78.5 Hyperlipidemia, unspecified; I10 Essential (primary) hypertension; E03.9 Hypothyroidism, unspecified; Z87.891 Personal history of nicotine dependence; Z86.73 Personal history of transient ischemic attack (TIA), and cerebral infarction without residual deficits; Z79.01 Long term (current) use of anticoagulants; G30.1 Alzheimer's disease with late onset; F02.80 Dementia in other diseases classified elsewhere, unspecified severity, without behavioral disturbance, psychotic disturbance, mood disturbance, and anxiety; L89.159 Pressure ulcer of sacral region, unspecified stage
CPT/HCPCS: 36415; 51701; 74176; 80048; 80053; 81001; 82550; 83605; 83690; 83735; 85025; 85027; 85610; 85730; 86850; 86900; 86901; 87040; 87077; 87086; 87088; 87147; 87181; 87186; 96361; 96365; 96366; 96375; 96376; 99285; A9270; C9113; G0378; J2270; J2405; J2543; J7030; J7120

== ENCOUNTER 2022-10-12 20:41 | HOS | payer OTHER, SELFPAY ==
--- NOTE | 2022-10-12 20:58 | ADMGEN ---
This patient, Samantha Burgess, was admitted to [facility] Room 318-01. Patient/family oriented to hospital policies and general routines including ID bracelet, bed and alarms, visiting hours, pain management, procedures, bathroom and other care routines, personal items, smoking policy, room service/diet, and visiting hours. Information on how to activate the Rapid Response Team has been discussed. Patient/Family are encouraged to report perceived risks to care and to ask questions if they do not understand what they are told or what they should do.
[2022-10-12 22:00] VITALS: BP 86/44; PULSE 89; RESP 18; TEMP 35.8; O2SAT 85
[2022-10-12 23:00] VITALS: PULSE 84; RESP 18
[2022-10-12] MEDS: HYDROmorphone HCL/PF (*CRX) 50 MG in SODIUM CHLORIDE 0.9% IV 95 ML IV CONT (23:00)
--- NOTE | 2022-10-13 13:54 | PM.IMHP ---
H&P: HPI History of Present Illness Date/Time: 10/13/22 13:54 Chief Complaint: Uncontrolled pain Narrative: 82-year-old female has been in longterm at [facility] since March of 2022. She was brought to [facility] April 10 due to labs showing acute kidney injury with creatinine over 5. She had a history of chronic kidney disease. She had a recent decubitus ulcer and recurrent urinary infections. She was hypotensive upon arrival and responded somewhat fluid resuscitation and broad-spectrum antibiotics with Zosyn. She also had heme-positive stool. She was uncomfortable and had not responded to 4 mg of IV morphine. Because of her failure to improve with IV resuscitation and antibiotics her multiple comorbidities and advanced age her daughter who is power of cooperer opted for inpatient hospice to control her discomfort. Review of Systems Review of Systems: ROS unobtainable: Yes unobtainable due to medical condition PMFSH Past Medical History Medical History Cerebrovascular accident Deep venous thrombosis Dementia Depression Hyperlipidemia Hypertension Hypothyroidism Surgical History Surgical History History of back surgery History of cataract extraction History of left knee surgery Family History Family History Father Family history of cardiovascular disease, Onset Age: 56 Family history of malignant neoplasm, Onset Age: 56 Mother Family history of cardiovascular disease, Onset Age: 91 Social History Social History Social History: Healthcare power of cooperer: Jeanette Burgess, daughter. Code status: CNR Smoking status: Former smoker Tobacco type: cigarettes Smoking end date: 03/13/17 Alcohol intake: never Substance use: never Substance use type: does not use Additional living arrangements comments: [facility]. Spiritual care concerns: No Meds Home Medications and Allergies Home Medications Medication Instructions Recorded Confirmed Type No Home Medications 10/12/22 10/12/22 History Allergies Allergy/AdvReac Type Severity Reaction Status Date / Time No Known Allergies Allergy Verified 12/30/21 14:11 Vital Signs Vital Signs - 24 hr 10/12/22 22:00 10/12/22 23:00 10/13/22 11:04 Temperature 96.5 F L Pulse Rate 89 84 Respiratory Rate 18 18 Blood Pressure 86/44 L Pulse Oximetry 85 L Oxygen Delivery Nasal Cannula Oxygen Flow Rate 2.5 10/13/22 08:00 Temperature Pulse Rate Respiratory Rate Blood Pressure Pulse Oximetry Oxygen Delivery Nasal Cannula Oxygen Flow Rate 2.5 Exam Narrative: HEENT:Left ptosis, sclerae nonicteric, pharyngeal mucosa pink and intact NECK: No JVD CHEST: Coarse BS HEART: NL S1/S2, regular, no murmur ABDOMEN: BS hypoactive, soft, nontender, no mass, no bruits EXTREMITIES: No cyanosis, edema, or clubbing NEUROLOGIC: CN w/ left ptosis MUSCULOSKELETAL: No gross deformity to visual inspection PSYCH: Drowsy but responds to visual and tactile stimuli, says Cold when feet are uncovered Assessment and Plan Assessment and plan (1) Palliative care encounter: Code(s): Z51.5 - Encounter for palliative care Status: Acute Assessment and Plan: Meets inpatient hospice criteria due to requiring continuous IV hydromorphone for control of pain Remainder of palliative regimen as ordered (2) Sepsis: Code(s): A41.9 - Sepsis, unspecified organism Status: Acute (3) Left kidney mass: Code(s): N28.89 - Other specified disorders of kidney and ureter Status: Acute (4) Heme positive stool: Code(s): R19.5 - Other fecal abnormalities Status: Acute (5) Urinary tract infection: Code(s):
[2022-10-13 14:34] VITALS: BP 88/42; PULSE 65; RESP 8; TEMP 36.4; O2SAT 94
[2022-10-13] MEDS: ARTIFICIAL TEARS OPHTH SOLN 15 ML BOTTLE 1 DROP EACH EYE (21:15)
[2022-10-13 22:15] VITALS: BP 140/115; PULSE 73; RESP 12; TEMP 36.7; O2SAT 92
[2022-10-13 23:03] VITALS: PULSE 88; RESP 18
[2022-10-13 23:05] VITALS: PULSE 88; RESP 18
[2022-10-13] MEDS: HYDROmorphone HCL/PF (*CRX) 50 MG in SODIUM CHLORIDE 0.9% IV 95 ML IV CONT (23:05)
[2022-10-14] MEDS: HYDROmorphone HCL INJ (*CRX) 1 MG/ML SYR IV PUSH ×3 (06:06→10:55)
[2022-10-14 08:10] VITALS: O2SAT 92
[2022-10-14] MEDS: ARTIFICIAL TEARS OPHTH SOLN 15 ML BOTTLE 1 DROP EACH EYE ×2 (08:11→21:05)
[2022-10-14] MEDS: diazePAM INJ (*CRX) 10 MG/2 ML SYRINGE 5 MG IV PUSH ×3 (08:55→23:26)
[2022-10-14] MEDS: HYDROmorphone HCL INJ (*CRX) 1 MG/ML SYR 2 MG IV PUSH (12:52)
[2022-10-14 14:00] VITALS: BP 86/42; PULSE 56; RESP 12; TEMP 36.4; O2SAT 99
[2022-10-14] MEDS: HYDROmorphone HCL INJ (*CRX) 2 MG/ML VIAL 4 MG IV PUSH ×2 (15:08→23:25)
--- NOTE | 2022-10-14 15:23 | PC.NURSE ---
On 10/14/22, the student, [ Eli David], provided care and completed [facility] documentation on this patient. I have reviewed the student's documentation and agree with the findings.
--- NOTE | 2022-10-14 19:01 | PM.IMPN ---
Progress Note: A&P Assessment and Plan (1) Palliative care encounter: Code(s): Z51.5 - Encounter for palliative care Status: Acute Assessment and Plan: Meets inpatient hospice criteria due to requiring continuous IV hydromorphone for control of pain Remainder of palliative regimen as ordered (2) Sepsis: Code(s): A41.9 - Sepsis, unspecified organism Status: Acute (3) Left kidney mass: Code(s): N28.89 - Other specified disorders of kidney and ureter Status: Acute (4) Heme positive stool: Code(s): R19.5 - Other fecal abnormalities Status: Acute (5) Urinary tract infection: Code(s): N39.0 - Urinary tract infection, site not specified Status: Acute (6) Acute kidney injury: Code(s): N17.9 - Acute kidney failure, unspecified Status: Acute (7) Hypothyroidism: Code(s): E03.9 - Hypothyroidism, unspecified Status: Acute (8) Hypertension: Code(s): I10 - Essential (primary) hypertension Status: Acute (9) Pressure ulcer: Code(s): L89.90 - Pressure ulcer of unspecified site, unspecified stage Status: Acute (10) History of DVT (deep vein thrombosis): Code(s): Z86.718 - Personal history of other venous thrombosis and embolism Status: Acute Subjective Date/time seen: 10/14/22 19:01 Interval history: Required increase in hydromorphone drip today. Comfortable since then. Review of Systems Review of Systems: ROS unobtainable: Yes unobtainable due to medical condition Exam Narrative: HEENT:Left ptosis NECK: No JVD CHEST: Coarse BS HEART: NL S1/S2, regular, no murmur ABDOMEN: BS hypoactive, soft, nontender, no mass, no bruits EXTREMITIES: No cyanosis, edema, or clubbing NEUROLOGIC: CN w/ left ptosis MUSCULOSKELETAL: No gross deformity to visual inspection PSYCH: Sleeping but responds in a non directed fashion to verbal and tactile stimuli Objective Data Vital Signs Vital Signs: Vital Signs - 24 hr 10/13/22 20:00 10/13/22 22:15 10/13/22 23:03 Temperature 98.1 F Pulse Rate 73 88 Respiratory Rate 12 18 Blood Pressure 140/115 H Pulse Oximetry 92 Oxygen Delivery Nasal Cannula Oxygen Flow Rate 3 10/13/22 23:05 10/14/22 08:10 10/14/22 14:00 Temperature 97.6 F Pulse Rate 88 56 L Respiratory Rate 18 12 Blood Pressure 86/42 L Pulse Oximetry 92 99 Oxygen Delivery Nasal Cannula Oxygen Flow Rate 3 Intake/Output Intake/Output: Intake & Output 10/11/22 10/12/22 10/13/22 10/14/22 23:59 23:59 23:59 23:59 Intake Total 35 0 Output Total 1000 125 Balance -965 -125 Meds/Results Medications: Active Medications Generic Name Dose Route Start Last Admin Trade Name Freq PRN Reason Stop Dose Admin Acetaminophen 650 mg 10/12/22 22:10 Acetaminophen 650 Mg Suppository RECTAL Q4H PRN Fever Artificial Tears 1 drop 10/13/22 09:00 10/14/22 08:11 Artificial Tears Ophth Soln 15 Ml Bottle EACH EYE 1 drop Q12HR DESI Administration Artificial Tears 1 drop 10/12/22 22:09 Artificial Tears Ophth Soln 15 Ml Bottle EACH EYE Q4H PRN DRY EYES Bisacodyl 10 mg 10/12/22 22:10 Bisacodyl 10 Mg Suppository RECTAL DAILY PRN Constipation Diazepam 5 mg 10/12/22 22:05 10/14/22 13:47 Diazepam Inj (*Crx) 10 Mg/2 Ml Syringe IV PUSH 5 mg Q4H PRN Administration ANXIETY/RESTLESSNESS Glycopyrrolate 0.1 mg 10/12/22 22:10 Glycopyrrolate Inj (*Sp) 0.2 Mg/Ml Vial IV PUSH Q4H PRN secretions Hydromorphone HCl 4 mg 10/14/22 15:05 10/14/22 15:08 Hydromorphone Hcl Inj (*Crx) 2 Mg/Ml Vial IV PUSH 4 mg Q2H PRN Administration PAIN/SOB Hydromorphone HCl 50 mg/ 100 mls @ 4 mls/hr 10/12/22 22:05 10/14/22 15:04 Sodium Chloride IV CONT 2 mg/hr .Q24H DESI 4 mls/hr Infusion 2 MG/HR Prochlorperazine Edisylate 10 mg 10/12/22 22:07 Prochlorperazine Edisylate
[2022-10-14 22:00] VITALS: BP 74/27; PULSE 44; RESP 12; TEMP 36.1; O2SAT 86
[2022-10-14 23:28] VITALS: PULSE 60; RESP 10
[2022-10-14] MEDS: HYDROmorphone HCL/PF (*CRX) 50 MG in SODIUM CHLORIDE 0.9% IV 95 ML IV CONT (23:28)
[2022-10-15] MEDS: diazePAM INJ (*CRX) 10 MG/2 ML SYRINGE 5 MG IV PUSH (06:00)
[2022-10-15] MEDS: HYDROmorphone HCL INJ (*CRX) 2 MG/ML VIAL 4 MG IV PUSH (06:00)
[2022-10-15] MEDS: GLYCOPYRROLATE INJ (*SP) 0.2 MG/ML VIAL 0.1 MG IV PUSH (06:51)
--- NOTE | 2022-10-20 17:38 | P.DN_ITS ---
Discharge Summary Date and Time Date of : 10/15/22 Time of : 08:55 Provider Pronounced By: Vaishnavi Benson Probable Cause of Probable Cause of : Sepsis due to UTI caused by ESBL e. coli Summary Hospital Course: Admitted to inpatient hospice service for symptoms management. Medications titrated to comfort. Mrs. Burgess peacefully. Additional Data Confirmation of as documented by pronouncing clinician: Pupillary Reflex, Palpable Pulses, Response to Stimuli, Heart Tones and Breath Sounds Name of Provider Notified: Dr. Vasquez Time Provider Notified: 09:15 Family Requests Autopsy: No [employer] Notified: Yes Date [facility] Notified of : 10/15/22 Time [facility] Notified of : 09:20
== END 2022-10-15 08:55 | disposition expired | DRG 951 ==
PROVIDERS: Admitting Provider Internal Medicine; PCP Emergency Medicine; Visit Provider Internal Medicine
DX: Z51.5 Encounter for palliative care (principal); A41.9 Sepsis, unspecified organism; N17.9 Acute kidney failure, unspecified; N39.0 Urinary tract infection, site not specified; N28.89 Other specified disorders of kidney and ureter; R19.5 Other fecal abnormalities; E03.9 Hypothyroidism, unspecified; I10 Essential (primary) hypertension; L89.90 Pressure ulcer of unspecified site, unspecified stage; Z86.718 Personal history of other venous thrombosis and embolism
CPT/HCPCS: A9270; J1170; J3360